=== PATIENT | female | born 1970 | race Two or more races ===

== ENCOUNTER → 2024-10-05 | Outpatient (CLI) | payer BC, SELFPAY ==
[2024-10-05 17:38] LABS: Basophils % (Auto) 0 % (0-2.5); Eosinophils # (Auto) 0.1 Thou/mm3 (0.0-0.5); Eosinophils % (Auto) 1 % (0-10); Hematocrit 38.1 % (36.0-46.0); Immature Granulocytes % (Auto) 0 % (0-0); Immature Granulocytes Auto 0.02 Thou/mm3 (0.00-0.00); Lymphocytes # (Auto) 1.8 Thou/mm3 (1.0-4.8); Lymphocytes % (Auto) 20 % (10-50); Mean Corpuscular HGB Conc 34.1 g/dl (31.0-37.0); Mean Corpuscular Hemoglobin 30.9 pg (25.0-35.0); Mean Corpuscular Volume 91 fL (80-100); Monocytes # (Auto) 0.6 Thou/mm3 (0.0-0.8); Monocytes % (Auto) 6 % (0-12); Neutrophils # (Auto) 6.7 Thou/mm3 (1.8-7.7); Neutrophils % (Auto) 73 % (37-80); Nucleated Red Blood Cell % 0 /100 WBC (0); Platelet Count 385 Thou/mm3 (140-440); RDW Standard Deviation 43.5 fL (36.4-46.3); Red Blood Count 4.21 Miln/mm3 (4.00-5.20); White Blood Count 9.2 Thou/mm3 (3.6-11.0)
[2024-10-05 17:50] LABS: Glucose Estimated Average 100 mg/dL (80-131); Hemoglobin A1C 5.1 % Hgb (4.8-6.0)
[2024-10-05 17:51] LABS: Alanine Aminotransferase 37 U/L (10-49); Albumin, Serum 4.5 gm/dL (3.5-5.0); Alkaline Phosphatase 157 U/L (46-116); Anion Gap 8 (7-16); Aspartate Amino Transferase 31 U/L (0-34); BUN/Creatinine Ratio 14 Ratio (12-20); Bilirubin,Total 0.4 mg/dL (0.3-1.2); Blood Urea Nitrogen 10 mg/dL (9-23); Calcium 9.7 mg/dL (8.3-10.6); Calcium (Corrected) 9.7 mg/dL (8.5-10.1); Carbon Dioxide 27.2 mMol/L (20.0-31.0); Chloride 107 mMol/L (98-107); Creatinine (Component) 0.7 mg/dL (0.6-1.3); Globulin 2.3 gm/dL (2.3-3.5); Glucose 98 mg/dL (74-106); Osmolality,Calculated 282 (275-295); Sodium 142 mMol/L (136-145); Total Protein 6.8 gm/dL (5.7-8.2); eGFR > 60 See Note
== END | disposition home or self-care (01) ==
LOC: COPL 16:07
PROVIDERS: Referring Provider Specialist; Visit Provider Specialist
DX: Z01.812 Encounter for preprocedural laboratory examination (principal); K59.01 Slow transit constipation
CPT/HCPCS: 36415; 80053; 83036; 85025

== ENCOUNTER → 2024-10-08 | Outpatient (CLI) | payer BC, SELFPAY ==
--- NOTE | 2024-10-08 10:32 | XR_ITS ---
Examination: Gastrografin enema with KUB Fluoroscopy 19 spot fluoroscopic films of the esophagus Date and time: October 08, 2024 1043 hours INDICATIONS: Incomplete colonoscopy history, history severe constipation TECHNIQUE AND FINDINGS: Preliminary film shows moderately air distended colon The colon is filled with Gastrografin into the cecum with abundant reflux into the ileum Normal hepatopedal flow pattern No rectal or other ulcerations No constricting colonic lesion Mucosal detail appears satisfactory Evacuation is partial, mucosal detail appears satisfactory IMPRESSION: Negative study Fluoroscopy 0.2 minute radiation dose 38.38 milligray 19 spot fluoroscopic films of the abdomen
== END | disposition home or self-care (01) ==
PROVIDERS: PCP Specialist; Referring Provider Specialist; Visit Provider Specialist
DX: K56.2 Volvulus (principal)
CPT/HCPCS: 74270; Q9963